=== PATIENT | female | born 1985 | race African-American/Black ===

== ENCOUNTER 2019-12-08 21:12 | Emergency (ER) | payer MEDICAID ==
[~2019-12-08] VITALS: Ht 167.6 cm; Wt 73.0 kg
[2019-12-08 21:18] VITALS: BP 138/106
== END 2019-12-08 23:00 | disposition left against medical advice (07) ==
LOC: ER 21:12
DX: S40.812A Abrasion of left upper arm, initial encounter (principal); S00.83XA Contusion of other part of head, initial encounter; G40.909 Epilepsy, unspecified, not intractable, without status epilepticus; F10.129 Alcohol abuse with intoxication, unspecified; Y90.9 Presence of alcohol in blood, level not specified; Y04.0XXA Assault by unarmed brawl or fight, initial encounter; Y93.89 Activity, other specified; Y92.018 Other place in single-family (private) house as the place of occurrence of the external cause
CPT/HCPCS: 93005; 99283

== ENCOUNTER 2019-12-09 11:12 | Emergency (ER) | payer MEDICAID ==
[~2019-12-09] VITALS: Ht 170.2 cm; Wt 82.0 kg
[2019-12-09] MEDS ORDERED: BACITRACIN ZINC OINT UDPKT TOP ONE (11:45)
[2019-12-09] MEDS ORDERED: TETANUS, DIPHTHERIA, PERTUSSIS VAC/PF 0.5ML (>7YR OLD) IM ONE (11:45)
[2019-12-09] MEDS ORDERED: ACETAMINOPHEN WITH CODEINE 300/30MG TABLET PO ONE (11:45)
[2019-12-09 13:06] VITALS: BP 114/90
== END 2019-12-09 13:07 | disposition home or self-care (01) ==
LOC: ER 12:28
DX: S61.112A Laceration without foreign body of left thumb with damage to nail, initial encounter (principal); S60.222A Contusion of left hand, initial encounter; S00.83XA Contusion of other part of head, initial encounter; Z98.890 Other specified postprocedural states; Y04.2XXA Assault by strike against or bumped into by another person, initial encounter; Y93.89 Activity, other specified; Y92.89 Other specified places as the place of occurrence of the external cause; Y99.8 Other external cause status
CPT/HCPCS: 73130; 90471; 90715; 99283

== ENCOUNTER 2019-12-12 12:41 | Emergency (ER) | payer MEDICAID ==
[~2019-12-12] VITALS: Ht 170.2 cm; Wt 82.0 kg
[2019-12-12] MEDS ORDERED: BACITRACIN ZINC OINT UDPKT TOP ONE ×2 (16:24→16:30)
[2019-12-12 16:50] VITALS: BP 115/86
== END 2019-12-12 16:58 | disposition home or self-care (01) ==
LOC: ER 12:41
DX: Z48.00 Encounter for change or removal of nonsurgical wound dressing (principal)
CPT/HCPCS: 99283

== ENCOUNTER 2020-04-24 08:57 | Emergency (ER) | payer MEDICAID ==
[~2020-04-24] VITALS: Ht 170.2 cm; Wt 92.0 kg
[2020-04-24] MEDS ORDERED: METHYLPREDNISOLONE SOD SUCC 125 MG/2 ML VIAL IV ONE (09:30)
[2020-04-24] MEDS ORDERED: DIPHENHYDRAMINE 50MG/ML VIAL IV ONE (09:30)
[2020-04-24] MEDS ORDERED: FAMOTIDINE 20MG/2ML VIAL IV ONE (09:30)
[2020-04-24 11:48] VITALS: BP 101/63
== END 2020-04-24 11:48 | disposition home or self-care (01) ==
LOC: ER 08:57
DX: T78.40XA Allergy, unspecified, initial encounter (principal); G40.909 Epilepsy, unspecified, not intractable, without status epilepticus; F17.210 Nicotine dependence, cigarettes, uncomplicated; Z71.6 Tobacco abuse counseling; Z98.890 Other specified postprocedural states; X58.XXXA Exposure to other specified factors, initial encounter
CPT/HCPCS: 96374; 96375; 99284; 99406; J1200; J2930; J3490

== ENCOUNTER 2021-11-18 12:59 | Emergency (ER) | payer MEDICAID ==
[~2021-11-18] VITALS: Ht 167.6 cm; Wt 85.0 kg
[2021-11-18] MEDS ORDERED: DIPHENHYDRAMINE 50MG CAPSULE PO ONE (14:00)
[2021-11-18] MEDS ORDERED: PREDNISONE 20MG TABLET PO ONE (14:00)
[2021-11-18] MEDS ORDERED: EPIN0.3P3 IM (18:59)
[2021-11-18] MEDS ORDERED: P50 MT (19:00)
[2021-11-18 19:18] VITALS: BP 133/82
== END 2021-11-18 19:20 | disposition home or self-care (01) ==
LOC: ER 12:59
DX: L50.9 Urticaria, unspecified (principal); G40.909 Epilepsy, unspecified, not intractable, without status epilepticus; Z98.890 Other specified postprocedural states
CPT/HCPCS: 99283; J7512; Q0163

== ENCOUNTER 2021-11-28 08:16 | Emergency (ER) | payer MEDICAID ==
[~2021-11-28] VITALS: Ht 167.6 cm; Wt 81.0 kg
[~2021-11-28 08:16] MED LIST: EPIN0.3P3 IM; P50 MT
[2021-11-28] MEDS ORDERED: SODIUM CHLORIDE 0.9% 1,000 ML IV ONE (08:45)
[2021-11-28] MEDS ORDERED: METHYLPREDNISOLONE SOD SUCC 125 MG/2 ML VIAL IV ONE (08:45)
[2021-11-28] MEDS ORDERED: DIPHENHYDRAMINE 50MG/ML VIAL IV ONE (08:45)
[2021-11-28 09:53] LABS: CHLORIDE 108 mEq/L (98-107)
[2021-11-28 09:58] LABS: BASOPHILS % 0.7 % (0.0-2.0); EOSINOPHILS % 0.5 % (0.0-5.0); HEMATOCRIT. 39.7 % (36.0-48.0); HEMOGLOBIN. 13.5 g/dL (12.0-16.0); LYMPHOCYTES % 24.9 % (20.0-50.0); MEAN CORPUSCULAR HEMOGLOBIN 29.8 pg (28.0-32.0); MEAN CORPUSCULAR VOLUME 87.3 fL (81.0-99.0); MEAN PLATELET VOLUME 7.4 fl (7.4-10.4); MONOCYTES % 2.6 % (2.0-8.0); NEUTROPHILS % 71.3 % (40.0-76.0); PLATELET 529 x1000/uL (130-400); RED BLOOD CELL COUNT 4.54 mill/uL (4.2-5.4); RED CELL DISTRIBUTION WIDTH 14.7 % (11.6-14.6)
[2021-11-28 09:59] LABS: HCG SCREEN NEGATIVE
[2021-11-28 11:04] VITALS: BP 109/80
[2021-11-28] MEDS ORDERED: B50 MT (11:08)
[2021-11-28] MEDS ORDERED: P50 MT (11:08)
[2021-11-28] MEDS ORDERED: EPIN0.3P3 IM (11:09)
== END 2021-11-28 11:55 | disposition home or self-care (01) ==
LOC: ER 08:16
DX: T78.40XA Allergy, unspecified, initial encounter (principal); G40.909 Epilepsy, unspecified, not intractable, without status epilepticus; Z98.890 Other specified postprocedural states; X58.XXXA Exposure to other specified factors, initial encounter
CPT/HCPCS: 36415; 80053; 84703; 85025; 96361; 96374; 96375; 99284; J1200; J2930; J7030